=== PATIENT | female | born 1950 | race Caucasian/White ===

== ENCOUNTER 2023-12-03 20:30 | Emergency (ER) | payer OTHER ==
[~2023-12-03] VITALS: Ht 152.4 cm; Wt 72.6 kg
[~2023-12-03 20:30] MED LIST: ASPI-1497 PO; CLOP-31 PO; LIP40 PO; LOSA-413 PO
[2023-12-03 20:31] VITALS: O2SAT 98
[2023-12-03 21:37] LABS: CHLORIDE 101 mEq/L (98-107); POTASSIUM 3.9 mEq/L (3.5-5.1); SODIUM 136 mEq/L (136-145)
[2023-12-03 21:38] LABS: CARBON DIOXIDE 29 mEq/L (21-32)
[2023-12-03 21:39] LABS: CALCIUM 10.2 mg/dL (8.7-10.4); EOSINOPHILS % 3.6 % (0.0-5.0); HEMATOCRIT. 37.9 % (36.0-48.0); HEMOGLOBIN. 12.3 g/dL (12.0-16.0); LYMPHOCYTES % 39.9 % (20.0-50.0); MEAN CORPUSCULAR HEMOGLOBIN 29.3 pg (28.0-32.0); MEAN CORPUSCULAR HGB CONC 32.5 g/dL (31.0-37.0); MEAN CORPUSCULAR VOLUME 89.9 fL (81.0-99.0); MEAN PLATELET VOLUME 7.9 fl (7.4-10.4); MONOCYTES % 6.6 % (2.0-8.0); NEUTROPHILS % 48.9 % (40.0-76.0); PLATELET 310 x1000/uL (130-400); RED BLOOD CELL COUNT 4.21 mill/uL (4.2-5.4); RED CELL DISTRIBUTION WIDTH 14.4 % (11.6-14.6); WHITE BLOOD COUNT 5.5 x1000/uL (4.5-11.0)
[2023-12-03 21:43] LABS: CREATININE 0.8 mg/dL (0.6-1.0); GLUCOSE 97 mg/dL (70-105); UREA NITROGEN BLOOD 15 mg/dL (9-23)
[2023-12-03 21:44] LABS: TROPONIN I HIGH SENSITIVITY 14 ng/L (3.0-34)
[2023-12-03] MEDS ORDERED: MORPHINE SULFATE 4 MG/ML INJ (FOR IV/IM USE) IV STA (22:21)
[2023-12-03] MEDS ORDERED: NITROGLYCERIN 0.4MG TABLET SL SL PRN ×2 (22:30→23:00)
[2023-12-03] MEDS: ASPIRIN 81MG TABLET PO ONE (23:00)
[2023-12-03 23:05] VITALS: TEMP 36.94740
[2023-12-03] MEDS: MORPHINE SULFATE 4 MG/ML INJ (FOR IV/IM USE) IV NR (23:16)
[2023-12-03] MEDS: ASPIRIN 81MG TABLET PO NR (23:19)
[2023-12-04 00:13] LABS: TROPONIN I HIGH SENSITIVITY 16 ng/L (3.0-34)
[2023-12-04 03:04] VITALS: BP 156/59; PULSE 64; RESP 14; O2SAT 99
== END 2023-12-04 04:35 | disposition short-term general hospital (02) ==
LOC: ER 20:30
DX: R07.89 Other chest pain (principal); R42 Dizziness and giddiness; I10 Essential (primary) hypertension; Z79.899 Other long term (current) drug therapy
CPT/HCPCS: 80048; 85025; 84484; 36415; 71045; 93005; 96374; 99285; Z7610; J2270